=== PATIENT | male | born 1995 | race Caucasian/White ===

== ENCOUNTER 2017-03-06 18:09 | Emergency (ER) | payer OTHER ==
[~2017-03-06 18:09] MED LIST: ABL10 PO; CLXUNK; CTPUNK; [UNRECOGNIZED DRUG - OTHER]
[2017-03-06 18:11] VITALS: Ht 185.4 cm
[2017-03-06] MEDS ORDERED: LITH300T2 PO (18:18)
[2017-03-06 18:50] LABS: BASO % 0.4 %; BASO ABS # 0.02 K/uL (0-0.2); COMPLETE YES; EOS % 3.3 %; HEMATOCRIT 44.8 % (42-52); IG% 0.2 %; LYMPH % 23.7 %; LYMPH ABS # 1.28 K/uL (1.2-3.4); MEAN CELL VOLUME 84.8 fL (80-100); MEAN CORPUSCULAR HEMOGLOBIN 29.9 pg (25-34); MEAN CORPUSCULAR HGB CONC 35.3 g/dl (32-36); MEAN PLATELET VOLUME 10.4 fL (7.4-10.4); MONO % 5.2 %; NEUT % 67.2 %; PLATELET COUNT 192 K/uL (130-400); RED BLOOD COUNT 5.28 M/uL (4.7-6.1); WHITE BLOOD COUNT 5.39 K/uL (4.8-10.8)
[2017-03-06 19:08] LABS: BLOOD UREA NITROGEN 5 mg/dl (7-18); BUN/CREATININE RATIO 6.3 (10-20); CALCIUM 9.3 mg/dl (8.5-10.1); CARBON DIOXIDE 27 mmol/L (21-32); CHLORIDE 108 mmol/L (98-107); CREATININE 0.83 mg/dl (0.60-1.40); GLUCOSE 81 mg/dl (70-99); POTASSIUM 3.5 mmol/L (3.5-5.1); SODIUM 141 mmol/L (136-145)
--- NOTE | 2017-03-06 19:10 | DIAGNOSTIC IMAGING REPORT ---
CHEST ONE VIEW PORTABLE CLINICAL HISTORY: Chest pain. COMPARISON STUDY: No previous studies for comparison. FINDINGS: The lung volumes are normal. Lungs are clear. No pneumothorax or pleural effusion is present. Cardiac size is normal. Mediastinal contours are normal. There is no evidence of pulmonary edema. IMPRESSION: No acute cardiopulmonary findings. Electronically signed by: Elan Chau M.D. 03/06/2017 7:09 PM Dictated Date/Time: 03/06/2017 7:09 PM
--- NOTE | 2017-03-06 19:13 | DIAGNOSTIC IMAGING REPORT ---
LEFT FOOT MIN 3 VIEWS ROUTINE CLINICAL HISTORY: Left foot pain. COMPARISON: None FINDINGS: Alignment of the tarsometatarsal joints is anatomic. No acute fracture within the left foot is noted. Joints spaces are preserved. There is no evidence for stress fracture. There is no osseous lesion. IMPRESSION: No fracture or dislocation within the left foot. Electronically signed by: Elan Chau M.D. 03/06/2017 7:12 PM Dictated Date/Time: 03/06/2017 7:10 PM
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
[2017-03-06 19:46] VITALS: BP 119/74; PULSE 74; TEMP 36.7; O2SAT 98
== END 2017-03-06 19:46 | disposition home or self-care (01) ==
LOC: C.EDB 18:12 → C.EDD 19:46
DX: S90.32XA Contusion of left foot, initial encounter (principal); X58.XXXA Exposure to other specified factors, initial encounter; R07.9 Chest pain, unspecified; R00.1 Bradycardia, unspecified; F17.200 Nicotine dependence, unspecified, uncomplicated; Z79.899 Other long term (current) drug therapy

== ENCOUNTER 2017-05-11 17:18 | Emergency (ER) | payer OTHER ==
[~2017-05-11] VITALS: Ht 188 cm; Wt 95.0 kg
[~2017-05-11 17:18] MED LIST changes: -ABL10 PO; -CLXUNK; -CTPUNK; +LITH300T2 PO; -[UNRECOGNIZED DRUG - OTHER]
[2017-05-11 17:21] VITALS: TEMP 36.9; Ht 188 cm; Wt 95.0 kg
[2017-05-11] MEDS ORDERED: SODIUM CHLORIDE 0.9% 1000ML 1,000 ML IV ONE (17:39)
[2017-05-11] MEDS ORDERED: KETOROLAC TROMETHAMINE 30 MG/ML VIAL IV STA (17:39)
[2017-05-11] MEDS ORDERED: SODIUM CHLORIDE 0.9% 1000ML 1,000 ML IV STA (17:39)
[2017-05-11] MEDS ORDERED: ONDANSETRON INJ 2 MG/ML 2 ML VIAL IV STA (17:39)
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
[2017-05-11 17:57] LABS: BASO % 0.4 %; BASO ABS # 0.02 K/uL (0-0.2); COMPLETE YES; EOS % 6.2 %; HEMATOCRIT 44.2 % (42-52); LYMPH % 37.3 %; LYMPH ABS # 1.69 K/uL (1.2-3.4); MEAN CELL VOLUME 86.3 fL (80-100); MEAN CORPUSCULAR HEMOGLOBIN 29.3 pg (25-34); MEAN CORPUSCULAR HGB CONC 33.9 g/dl (32-36); MEAN PLATELET VOLUME 10.6 fL (7.4-10.4); MONO % 4.4 %; NEUT % 51.7 %; PLATELET COUNT 193 K/uL (130-400); RED BLOOD COUNT 5.12 M/uL (4.7-6.1); WHITE BLOOD COUNT 4.53 K/uL (4.8-10.8)
[2017-05-11 18:13] LABS: BLOOD UREA NITROGEN 13 mg/dl (7-18); CREATININE 0.79 mg/dl (0.60-1.40); GLUCOSE 104 mg/dl (70-99)
[2017-05-11 18:14] LABS: ALT/SGPT 19 U/L (12-78); BUN/CREATININE RATIO 15.8 (10-20); CALCIUM 9.1 mg/dl (8.5-10.1); CARBON DIOXIDE 25 mmol/L (21-32); CHLORIDE 108 mmol/L (98-107); POTASSIUM 4.2 mmol/L (3.5-5.1); SODIUM 140 mmol/L (136-145)
[2017-05-11 18:17] LABS: ALKALINE PHOSPHATASE 84 U/L (45-117); AST/SGOT 12 U/L (15-37)
[2017-05-11] MEDS ORDERED: MoRPHine SULFATE 4 MG/ML 1 ML CARP\\VIAL IV STA (19:15)
--- NOTE | 2017-05-11 19:19 | DIAGNOSTIC IMAGING REPORT ---
HEAD WITHOUT CONTRAST (CT) CLINICAL HISTORY: 21 years-old Male presenting with headache. TECHNIQUE: Multidetector CT imaging of the head was performed without the use of intravenous contrast. IV contrast: None. A dose lowering technique was used consistent with the principles of ALARA (as low as reasonably achievable). COMPARISON: 12/21/2009. CT DOSE (mGy.cm): The estimated cumulative dose is not available. FINDINGS: Airport Screener topogram: Unremarkable. Ventricles and sulci normal in size. Prominence of the posterior fossa may represent an arachnoid cyst or iman cisterna magna. Brain parenchyma normal in appearance with preserved ovalle-white differentiation. No mass effect or midline shift. No hemorrhage or acute territorial infarct. No extra-axial fluid collection. Extensive opacification of the sphenoid, maxillary, frontal sinuses and ethmoid air cells. Calvarium intact. IMPRESSION: 1. No acute intracranial pathology. 2. Extensive mucosal thickening in the sinuses could indicate acute sinusitis. Electronically signed by: Hermann Stevens M.D. 05/11/2017 7:18 PM Dictated Date/Time: 05/11/2017 7:14 PM
[2017-05-11] MEDS ORDERED: AZITTAB PO (19:41)
[2017-05-11] MEDS ORDERED: AZITHROMYCIN 250 MG TAB PO ONE (19:45)
[2017-05-11 19:54] VITALS: BP 108/67; PULSE 53; O2SAT 97
== END 2017-05-11 19:56 | disposition home or self-care (01) ==
LOC: C.EDB 17:19 → C.EDA 19:56
DX: R51 Headache (principal); J01.90 Acute sinusitis, unspecified; F17.200 Nicotine dependence, unspecified, uncomplicated